=== PATIENT | female | born 1960 | race Hispanic/Latino ===

== ENCOUNTER 2024-05-10 14:11 | Emergency (ER) | payer SELFPAY ==
[~2024-05-10] VITALS: Ht 160 cm; Wt 88.9 kg
--- NOTE | 2024-05-10 16:21 | HMCIMG ---
KNEE 3VWS LT HISTORY: Status post fall COMPARISON: None TECHNIQUE: 3 images of the left knee were obtained. FINDINGS: There is no acute displaced fracture or dislocation. There is soft tissue swelling. Degenerative changes are seen. IMPRESSION: 1. Findings as described above.
--- NOTE | 2024-05-10 16:21 | HMCIMG ---
THORACIC SPINE 2VWS HISTORY: Status post fall COMPARISON: None FINDINGS: 3 images of the thoracic spine were obtained. There is mild dextroscoliosis. There is spondylosis. There is straightening of normal lordotic curvature which may be related to muscle spasm or positioning. No loss of vertebral height is seen. No fracture or dislocation is seen. Degenerative changes are seen. IMPRESSION: 1. No fracture is seen.
--- NOTE | 2024-05-10 16:21 | HMCIMG ---
LUMBAR SPINE 2-3VWS HISTORY: Status post fall COMPARISON: None FINDINGS: 3 images of the lumbar spine were obtained. There is spondylosis. There is straightening of normal lordotic curvature which may be related to muscle spasm or positioning. No loss of vertebral height is seen. No fracture or dislocation is seen. Degenerative changes are seen. IMPRESSION: 1. No fracture is seen.
--- NOTE | 2024-05-10 17:00 | ERN ---
General Chief Complaint: Multiple Complaints Stated Complaint: MULTIPLE COMPLAINTS Time Seen by MD: 14:14 Time Seen by Midlevel: 14:14 Source: patient History of Present Illness Initial Comments The patient is a 63-year-old female presenting to the emergency department following a mechanical ground level fall that she sustained yesterday at a local store. Patient states she tripped and fell onto her left side. Denies any loss of consciousness. She has pain to the left side of her shoulder, left side of her ribcage, and left knee. She denies taking any blood thinners. On arrival she was seen in the ER lobby in no acute distress on her phone. She was able to ambulate from the lobby into the triage room and into the examination room on her own. She was full range motion of bilateral lower extremities. There are no obvious signs of external trauma. Allergies: Coded Allergies: No Known Drug Allergies (Unverified Allergy, Unknown, 05/10/24) Past Medical History Past Medical History: No Pertinent History Past Surgical History: ROS Dictation CONSTITUTIONAL: Negative except for HPI HEAD/FACE: Negative except for HPI EENT: Negative except for HPI RESPIRATORY: Negative except for HPI GASTROINTESTINAL/ABDOMINAL: Negative except for HPI GENITOURINARY: Negative except for HPI MUSCULOSKELETAL: Negative except for HPI INTEGUMENTARY: Negative except for HPI NEUROLOGICAL/PSYCH: Negative except for HPI HEMATOLOGIC/LYMPHATIC: Negative except for HPI All Systems Negative, Except as noted above. 13 point review of systems assessed and all negative except for above. Physical Exam Physical Exam Dictation Vital Signs reviewed General Appearance: Alert, oriented x 3, no acute distress, well developed, nourished. Head and Face: non-traumatic. Eyes: PERRL, pink conjunctivas, eyelid no trauma, anterior chamber with arcus senilis. Ears: Pinnas intact and no signs of trauma or erythema ear canals clear and no discharge TM no erythema Nose: No discharge, no bleeding. Oropharynx: Mouth normal, tongue pink, pharynx clear,no erythema, tonsils no exudates, no abscesses noted, mucous membrane moist Neck: Supple, non-tender, no thyromegaly, no masses, no JVD, no bruits Breast:Deferred Chest:No tenderness, no crepitus, no paradoxical movement, no retractions Lungs:Clear, well-ventilated, symmetric, no rales, no wheezing, no rhonchi, no stridor, good breath sounds bilaterally Heart: Regular rate, regular rhythm, no murmur, no gallops Vascular: no peripheral edema, Abdomen: Soft, positive bowel sounds, nondistended, no guarding, nontender, no rebound, no masses no hepatomegaly, no splenomegaly, no Smith's sign, no hernias. Rectal: Deferred Genital: Deferred Neurological: Normal speech, motor function intact, sensory function intact Musculoskeletal: Neck nontender, full range of motion, back nontender, full range of motion, Extremities: nontender, full range of motion Skin: Color pink, dry, no turgor, no rash, no lacerations, superficial abrasion to the left upper arm, Lymphatic: Deferred MDM MDM: The patient is a 63-year-old female presenting to the emergency department following a mechanical ground level fall that she sustained yesterday at a local store. Patient states she tripped and fell onto her left side. Denies any loss of consciousness. She has pain to the left side of her shoulder, left side of her ribcage, and left knee. She denies taking any blood thinners. On arrival she was seen in the ER lobby in no acute distress on her phone. She was able to ambulate from the lobby into the triage room and into the examination room on her own. She was full range motion of bilateral lower extremities. There are no obvious signs of external trauma. Initial vital signs are stable. On physical examination there was no midline tenderness to her lumbar region. She has paraspinal muscle tenderness on the left side of the thoracolumbar area. She was full range motion of bilateral lower extremities. She was ambulatory without assistance. No need for CT scan of the head or neck given that she has no neurological deficits. She has a GCS of 15. No obvious signs of external trauma to the scalp or face. No midline tenderness to the cervical region. She was full range motion of her left shoulder but she does have some mild tenderness overlying the anterior left shoulder. She does have bruising and swelling to the left knee however range of motion is intact. An x-ray of the left shoulder, chest, left side of the ribs, and knee was obtained which does not show any evidence of an acute fracture or dislocation. The patient was observed in the ER for over 1 hour and has remained stable. She refused any pain medication. Patient will be discharged home with supportive management. She needs to follow up with your primary care doctor in 2-3 days for repeat evaluation. Differential diagnosis: Fracture, contusion, dislocation There are no social concerns with this patient. Prescription drug management Prescriptions will include: None Medical management and examination interpretation discussions were had by me with other qualified healthcare professionals as indicated for the patient's care. ED Course Orders Procedure Category Date Status Time Lumbar Spine 2-3vws RAD 05/10/24 Resulted 14:27 Ribs Uni Lt W Pa RAD 05/10/24 Resulted Chest 3+Vws 14:27 Thoracic Spine 2vws RAD 05/10/24 Resulted 14:27 Knee 3vws Lt RAD 05/10/24 Resulted 14:27 Vital Signs Date Time Temp Pulse Resp B/P (MAP) Pulse Ox O2 Delivery O2 Flow Rate FiO2 05/10/24 17:40 97.9 72 16 137/62 96 Room Air* 0 21 05/10/24 14:12 97.9 73 16 148/52 96 Room Air [place] [address] [id number] IMAGING REPORT Signed PATIENT: DASHAWN JENKINS MR#: [id number] : 1960 SEX: F AGE: 63 LOCATION: [facility] ORDER 28 STATUS: [facility] REPORT#: [id number] SERVICE 26 REASON: fall ORDERING PHYSICIAN: МАРИНА CHAVEZ PROCEDURE: THOR 2VW - THORACIC SPINE 2VWS THORACIC SPINE 2VWS HISTORY: Status post fall COMPARISON: None FINDINGS: 3 images of the thoracic spine were obtained. There is mild dextroscoliosis. There is spondylosis. There is straightening of normal lordotic curvature which may be related to muscle spasm or positioning. No loss of vertebral height is seen. No fracture or dislocation is seen. Degenerative changes are seen. IMPRESSION: 1. No fracture is seen. DICTATED BY: KIANA GARCIA MD DATE: 05/10/24 1616 ELECTRONICALLY SIGNED BY: KIANA GARCIA MD DATE: 05/10/24 162 [place] [address] [phone] IMAGING REPORT Signed PATIENT: DASHAWN JENKINS MR#: [id number] : 1960 SEX: F AGE: 63 LOCATION: [facility] ORDER 28 STATUS: [facility] REPORT#: [id number] SERVICE 26 REASON: fall ORDERING PHYSICIAN: МАРИНА CHAVEZ PROCEDURE: RIB LT W C - RIBS UNI LT W PA CHEST 3+VWS LEFT RIBS/CHEST RADIOGRAPHS - 5 VIEWS INDICATION: Left rib pain COMPARISON: None FINDINGS: Heart size is normal. Lungs are clear. No evidence for pneumothorax or pleural effusion. No evidence for pulmonary parenchymal contusion. No rib fracture identified. No radiopaque foreign body noted. IMPRESSION: 1. No rib fracture identified. 2. No radiographic evidence for any acute cardiopulmonary process. DICTATED BY: KRISTY MORE MD DATE: 05/10/241848 ELECTRONICALLY SIGNED BY: KRISTY MORE MD DATE: 05/10/[address] [address] IMAGING REPORT Signed PATIENT: DASHAWN JENKINS MR#: [id number] : 1960 SEX: F AGE: 63 LOCATION: [facility] ORDER 28 STATUS: [facility] REPORT#: [id number] SERVICE 26 REASON: fall ORDERING PHYSICIAN: МАРИНА CHAVEZ PROCEDURE: LUMB 2 3VW - LUMBAR SPINE 2-3VWS LUMBAR SPINE 2-3VWS HISTORY: Status post fall COMPARISON: None FINDINGS: 3 images of the lumbar spine were obtained. There is spondylosis. There is straightening of normal lordotic curvature which may be related to muscle spasm or positioning. No loss of vertebral height is seen. No fracture or dislocation is seen. Degenerative changes are seen. IMPRESSION: 1. No fracture is seen. DICTATED BY: KIANA GARCIA MD DATE: 05/10/241617 ELECTRONICALLY SIGNED BY: KIANA GARCIA MD DATE: 05/10/24 162 [place] [id number] [place] [address] IMAGING REPORT Signed PATIENT: DASHAWN JENKINS MR#: [id number] : 1960 SEX: F AGE: 63 LOCATION: [facility] ORDER 28 STATUS: [facility] REPORT#: [id number] SERVICE 26 REASON: fall ORDERING PHYSICIAN: МАРИНА CHAVEZ PROCEDURE: KNEE 3V LT - KNEE 3VWS LT KNEE 3VWS LT HISTORY: Status post fall COMPARISON: None TECHNIQUE: 3 images of the left knee were obtained. FINDINGS: There is no acute displaced fracture or dislocation. There is soft tissue swelling. Degenerative changes are seen. IMPRESSION: 1. Findings as described above. DICTATED BY: KIANA GARCIA MD DATE: 05/10/241616 ELECTRONICALLY SIGNED BY: KIANA GARCIA MD DATE: 05/10/241620 DX & DISP Disposition: Discharge Departure Impression: Primary Impression: Fall Additional Impressions: Contusion of left knee, Contusion of left shoulder, Back sprain Condition: Stable Additional Instructions: Your x-rays do not show any acute injury. You may take Tylenol and Motrin as needed for pain. Follow up with your primary care doctor in 2-3 days for repeat evaluation. Referrals: RENA GORDILLO MD (PCP) Time of Disposition: 16:59 I have reviewed the case, and I agree with, Diagnosis and Plan I performed the substantive portion of the visit. I have reviewed and personally made and approve the management plan that is documented in the note by myself or the [facility]. I acknowledge for responsibility for the patient's management plan. МАРИНА CHAVEZ May 10, 2024 17:00 SHERIF CUMMINS DO May 11, 2024 07:58
[2024-05-10 17:40] VITALS: BP 137/62; PULSE 72; RESP 16; TEMP 97.9; O2SAT 96
--- NOTE | 2024-05-10 18:52 | HMCIMG ---
LEFT RIBS/CHEST RADIOGRAPHS - 5 VIEWS INDICATION: Left rib pain COMPARISON: None FINDINGS: Heart size is normal. Lungs are clear. No evidence for pneumothorax or pleural effusion. No evidence for pulmonary parenchymal contusion. No rib fracture identified. No radiopaque foreign body noted. IMPRESSION: 1. No rib fracture identified. 2. No radiographic evidence for any acute cardiopulmonary process.
== END 2024-05-10 17:51 | disposition home or self-care (01) ==
LOC: EDH 14:11
DX: S33.5XXA Sprain of ligaments of lumbar spine, initial encounter (principal); S80.02XA Contusion of left knee, initial encounter; S40.012A Contusion of left shoulder, initial encounter; W01.0XXA Fall on same level from slipping, tripping and stumbling without subsequent striking against object, initial encounter; Y93.89 Activity, other specified; Y92.89 Other specified places as the place of occurrence of the external cause; Y99.8 Other external cause status
CPT/HCPCS: 71101; 72070; 72100; 73562; 99284